=== PATIENT | male | born 1980 | race African-American/Black ===

== ENCOUNTER 2022-07-10 10:08 | Emergency (ER) | payer MEDICARE, MEDICAID ==
[~2022-07-10] VITALS: Ht 188 cm; Wt 116.0 kg
[~2022-07-10 10:08] MED LIST: LURA40TA2 PO
[2022-07-10 10:12] VITALS: BP 143/94
[2022-07-10 11:15] LABS: BASOPHILS % 0.4 % (0.0-2.0); EOSINOPHILS % 1.4 % (0.0-5.0); HEMATOCRIT. 40.1 % (42.0-52.0); HEMOGLOBIN. 14.1 g/dL (14.0-18.0); LYMPHOCYTES % 29.5 % (20.0-50.0); MEAN CORPUSCULAR HEMOGLOBIN 27.1 pg (28.0-32.0); MEAN CORPUSCULAR VOLUME 77.3 fL (80.0-94.0); MEAN PLATELET VOLUME 7.7 fl (7.4-10.4); MONOCYTES % 10.1 % (2.0-8.0); NEUTROPHILS % 58.6 % (40.0-76.0); PLATELET 358 x1000/uL (130-400); RED BLOOD CELL COUNT 5.19 mill/uL (4.7-6.1); RED CELL DISTRIBUTION WIDTH 15.2 % (11.6-14.6)
[2022-07-10 11:22] LABS: CHLORIDE 103 mEq/L (98-107)
[2022-07-10 11:36] LABS: ETHANOL BLOOD < 10 mg/dL
== END 2022-07-10 13:45 | disposition home or self-care (01) ==
LOC: ER 10:08
DX: Z00.00 Encounter for general adult medical examination without abnormal findings (principal); Z63.79 Other stressful life events affecting family and household; D72.829 Elevated white blood cell count, unspecified; Z59.00 Homelessness unspecified; F20.9 Schizophrenia, unspecified; F31.9 Bipolar disorder, unspecified; F12.90 Cannabis use, unspecified, uncomplicated
CPT/HCPCS: 36415; 80053; 80307; 80320; 80329; 85025; 99283; G0480